=== PATIENT | female | born 1940 | race Caucasian/White ===

== ENCOUNTER 2022-04-29 10:17 | Emergency (ER) | payer MEDICARE, BC ==
[2022-04-29] MEDS ORDERED: Ketorolac 30 MG/ML SDV IM ONE (13:09)
== END 2022-04-29 16:15 | disposition home or self-care (01) ==
LOC: JD.ED 10:17
DX: M79.662 Pain in left lower leg (principal); Z88.2 Allergy status to sulfonamides; Z79.899 Other long term (current) drug therapy; Z79.01 Long term (current) use of anticoagulants
CPT/HCPCS: 36415; 80053; 83735; 85025; 85610; 93971; 96372; 99284; J1885

== ENCOUNTER 2022-06-03 02:53 | Emergency (ER) | payer MEDICARE, BC ==
[2022-06-03] MEDS ORDERED: Sodium Chloride 0.9% 1,000 ML IV ONE (03:12)
[2022-06-03 04:39] LABS: CORONAVIRUS COVID-19 NAA POSITIVE (NEGATIVE)
[2022-06-03] MEDS ORDERED: Nitrofurantoin Monohydrate/Macrocrystalline 100 MG Cap PO STA (07:13)
== END 2022-06-03 09:00 | disposition home or self-care (01) ==
LOC: JD.ED 02:53
DX: U07.1 COVID-19 (principal); N39.0 Urinary tract infection, site not specified; E66.9 Obesity, unspecified; Z88.2 Allergy status to sulfonamides; Z79.01 Long term (current) use of anticoagulants; Z79.899 Other long term (current) drug therapy; Z68.31 Body mass index [BMI] 31.0-31.9, adult
CPT/HCPCS: 0241U; 36415; 71045; 71045-26; 80053; 81001; 83605; 84484; 85007; 85027; 85610; 86140; 87040; 87086; 93005; 96360; 99285-25; A9270-GY; J7030